=== PATIENT | female | born 1975 | race American Indian/Alaskan Native ===

== ENCOUNTER 2017-08-02 10:55 | Emergency (ER) | payer MEDICARE ==
[2017-08-02 11:18] VITALS: BP 134/83
--- NOTE | 2017-08-02 12:02 | Emergency Department Report ---
HPI - General Chief Complaint: Extremity Injury, Lower Time Seen by Provider: 08/02/17 11:47 - HPI HPI: This is a 42-year-old female presents ED complaining of left foot pain 1 day. Patient states last night she was in her home when her leg accidentally kicked a wooden part of her argument. Patient states she had a shooting pain right after incident to her left medial anterior foot. She states she took some Motrin last night but did not relieve the pain. She states pain is worsened with applied pressure to the area. She denies loss of sensation, difficulty walking deformity or swelling seen. ED Past Medical Hx - Past Medical History Hx Hypertension: Yes - Surgical History Additional Surgical History: facial surgery,hysterectomy,bilateral knee surgery x2 on each - Social History Smoking Status: Never Smoker Substance Use Type: Alcohol - Medications Home Medications: Home Medications Medication Instructions Recorded Confirmed Last Taken Type Cyclobenzaprine [Flexeril] 10 mg PO QHS PRN #30 tablet 08/02/17 Unknown Rx Ibuprofen [Motrin] 800 mg PO Q8HR PRN #30 tablet 08/02/17 Unknown Rx ED Review of Systems ROS: Stated complaint: LEFT FOOT PAIN Other details as noted in HPI Constitutional: denies: chills, fever Eyes: denies: eye pain, eye discharge, vision change ENT: denies: ear pain, throat pain Respiratory: denies: cough, shortness of breath, wheezing Cardiovascular: denies: chest pain, palpitations Endocrine: no symptoms reported Gastrointestinal: denies: abdominal pain, nausea, diarrhea Genitourinary: denies: urgency, dysuria, discharge Musculoskeletal: denies: back pain, joint swelling, arthralgia Skin: denies: rash, lesions Neurological: denies: headache, weakness, paresthesias Psychiatric: denies: anxiety, depression Hematological/Lymphatic: denies: easy bleeding, easy bruising Physical Exam - Physical Exam Vital Signs: Vital Signs 08/02/17 11:15 Temperature 97.9 F Pulse Rate 81 Respiratory 18 Rate Blood Pressure 134/83 O2 Sat by Pulse 97 Oximetry Physical Exam: GENERAL: Alert and oriented x3, no apparent distress, Normal Gait, atraumatic. HEAD: Head is normocephalic and a-traumatic. EYES: Extra ocular muscles are intact. Pupils are equal, round, and reactive to light and accommodation. NECK: Supple. Non edematous,. No lymphadenopathy or thyromegaly. No C-spine tenderness LUNGS: Symetrical with respiration, No wheezing, no rales or crackles, CTAB. HEART: S1, S2 present, regular rate and rhythm without murmur, no rubs, no gallops. Non tender to palpation EXTREMITIES/MUSCULOSKELETAL: No cyanosis, clubbing, rash, lesions or edema. Full ROM bilaterally. UE/LE Pulses 2+ bilaterally. LE and UE 5+ strength bilaterally, left medial anterior cotton ball machine tender to palpation, no swelling, no erythema, no lesions, patient of Jo dorsiflex and plantarflex the left foot. NEUROLOGIC: The patient is cooperative with no focal neurologic deficits. Normal speech. Normal sensation in bilateral upper and lower extremities, No loss of sensation, SKIN: Warm and dry, No lesions, No ulceration or induration present. ED Course Vital Signs 08/02/17 11:15 Temperature 97.9 F Pulse Rate 81 Respiratory 18 Rate Blood Pressure 134/83 O2 Sat by Pulse 97 Oximetry ED Medical Decision Making - Radiology Data Radiology results: report reviewed, image reviewed XRay Report Signed Patient: STACI CAO MR#: [id number] : 1975 Acct:[id number] Age/Sex: 42 / F ADM Date: 08/02/17 Loc: ED Attending Dr: Ordering Physician: ALBAN[place] TREJO Date of Service: 08/02/17 Procedure(s): XR foot 3+V LT Accession Number(s): [id number] cc: ALB[place] TREJO Fluoro Time In Minutes: LEFT FOOT: Trauma, pain. The bony architecture is intact. Bony alignment is normal. No soft tissue abnormalities are seen. The joint spaces appear preserved. IMPRESSION: Normal left foot. Transcribed By: ENEDINA Dictated By: ROCKY MONTAÑO MD Electronically Authenticated By: ROCKY MONTAÑO MD Signed Date/Time: 08/02/17 1249 - Medical Decision Making 42-year-old female presents to ED with left foot pain is status post injury to the foot ED course: Patient received Toradol in ED. Vital signs are normal patient is in no acute distress Discussed with patient follow-up with primary care physician. Discussed the patient and take medications as prescribed. Patient has no neurological deficit. Patient is alert and oriented 3 and understands all instructions given. Discussed drowsiness effect of Flexeril makes her drowsy and not to operate machinery while taking flexeril Critical care attestation.: If time is entered above; I have spent that time in minutes in the direct care of this critically ill patient, excluding procedure time. ED Disposition Clinical Impression: Foot pain, left Disposition: [id number] TO HOME OR SELFCARE Is pt being admited?: No Does the pt Need Aspirin: No Condition: Stable Instructions: Arthralgia (ED), Foot Sprain (ED), Heat Pack Application (ED) Additional Instructions: Make sure to follow up with the primary care physician as discussed. Take all your medications as you've been prescribed. If you have any worsening symptoms or develop new symptoms please return to ED immediately. Prescriptions: Cyclobenzaprine [Flexeril] 10 mg PO QHS PRN #30 tablet PRN Reason: Muscle Spasm Ibuprofen [Motrin] 800 mg PO Q8HR PRN #30 tablet PRN Reason: Pain Referrals: DOMINIQUE COOK MD [Primary Care Provider] - 3-5 Days Forms: Work/School Release Form(ED) Time of Disposition: 13:15
[2017-08-02] MEDS ORDERED: TORADOL IM ONE (12:07)
--- NOTE | 2017-08-02 13:09 | XRay Report ---
LEFT FOOT: Trauma, pain. The bony architecture is intact. Bony alignment is normal. No soft tissue abnormalities are seen. The joint spaces appear preserved. IMPRESSION: Normal left foot.
== END 2017-08-02 13:24 | disposition home or self-care (01) ==
LOC: ED 10:55
DX: M79.672 Pain in left foot (principal); I10 Essential (primary) hypertension; Z90.710 Acquired absence of both cervix and uterus; Z88.8 Allergy status to other drugs, medicaments and biological substances
CPT/HCPCS: 73630; 96372; 99283; J1885